=== PATIENT | male | born 1945 | race Caucasian/White ===

== ENCOUNTER 2016-08-02 18:35 | Emergency (ER) | payer MEDICARE, OTHER ==
[2016-08-02] MEDS ORDERED: Erythromycin 3.5 GM OPHTH. OP ONE (19:02)
[2016-08-02] MEDS ORDERED: TETRACAINE 0.5% STERI-UNIT SOL OP STA (19:02)
[2016-08-02] MEDS ORDERED: Eye-Stream Solution OP ONE (19:02)
[2016-08-02] MEDS ORDERED: Fluor-I-Strip/Ful-Flo OP ONE ×2 (19:02→19:09)
[2016-08-02 19:08] VITALS: BP 146/74; PULSE 61; O2SAT 97
[2016-08-02] MEDS ORDERED: TETRACAINE 0.5% STERI-UNIT SOL OP ONE (19:09)
[2016-08-02] MEDS ORDERED: Eye-Stream Solution ONE (19:10)
[2016-08-02] MEDS ORDERED: Erythromycin 1 GM ONE (19:10)
--- NOTE | 2016-08-02 19:23 | ERPHSYRPT ---
- History of Present Illness Time Seen by Provider: 08/02/16 19:13 Source: patient Exam Limitations: clinical condition Patient Subjective Stated Complaint: was mowing grass this afternoon and got something in left eye Triage Nursing Assessment: ambulated to room seven per self. skin w/d, color normal. left eye slightly red and clear watery drainage. Physician History: PATIENT STATES WHILE MOWING GRASS HAS FOREIGN BODY SENSATION TO HIS LEFT EYE. DENIES BLURRED VISION, PHOTOPHOBIA, OR TEARING. Timing/Duration: abrupt onset Severity: mild Prearrival Treatment: no prearrival treatment Modifying Factors: Improves With: nothing Associated Symptoms: other (LEFT EYE FOREIGN BODY SENSATION) Allergies/Adverse Reactions: Penicillins Allergy (Verified 08/02/16 18:51) Home Medications: Aspirin [[place] Aspirin] 81 mg PO DAILY 08/02/16 [History] Carvedilol 3.125 mg [Coreg 3.125 MG] 3.125 mg PO BID 08/02/16 [History] Clopidogrel Bisulfate 75 mg [PLAVIX 75 MG Tablet] 75 mg PO DAILY 08/02/16 [History] Furosemide 20 mg [Lasix 20 mg] 20 mg PO BID 08/02/16 [History] Lisinopril 20 mg [Zestril 20 MG] 20 mg PO DAILY 08/02/16 [History] Potassium Chloride 20 Meq [Klor-Con 20 MEQ] 20 meq PO BID 08/02/16 [History] Hx Tetanus, Diphtheria Vaccination/Date Given: No Hx Influenza Vaccination/Date Given: No Hx Pneumococcal Vaccination/Date Given: No - Review of Systems Constitutional: No Fever, No Chills Eyes: Foreign Body Sensation Ears, Nose, & Throat: No Symptoms Respiratory: No Symptoms, No Cough, No Dyspnea Cardiac: No Symptoms, No Chest Pain, No Edema, No Syncope Abdominal/Gastrointestinal: No Abdominal Pain, No Nausea, No Vomiting, No Diarrhea Genitourinary Symptoms: No Dysuria Musculoskeletal: No Back Pain, No Neck Pain Skin: No Rash Neurological: No Symptoms, No Dizziness, No Focal Weakness, No Sensory Changes Psychological: No Symptoms Endocrine: No Symptoms All Other Systems: Reviewed and Negative - Past Medical History Pertinent Past Medical History: Yes Cardiac History: High Cholesterol, Hypertension, Other Musculoskeletal History: Other - Past Surgical History Past Surgical History: Yes Cardiac: Valve Replacement Gastrointestinal: Appendectomy Musculoskeletal: Joint Replacement Other Surgical History: hip replacement - Social History Smoking Status: Never smoker Exposure to second hand smoke: No Drug Use: none Patient Lives Alone: No - Nursing Vital Signs Nursing Vital Signs: Initial Vital Signs Temperature 97.8 F Temperature Source Oral Pulse Rate 61 Respiratory Rate 16 Blood Pressure [Right Arm] 146/74 Pain Intensity 5 - Physical Exam General Appearance: no apparent distress, alert Eye Exam: left eye: other (ERYTHEMA LEFT CONJUNCTIVA), bilateral eye: PERRL, EOMI, abnormal EOM Ear Exam: bilateral ear: auricle normal, canal normal, TM normal Nasal Exam: normal inspection SpO2 Interpretation: normal SpO2: 97 Oxygen Delivery: Room Air Ordered Tests: Medication Summary Discontinued Medications Generic Name Dose Route Start Last Admin Trade Name Freq PRN Reason Stop Dose Admin Diphtheria/Tetanus/Acell Pertussis 0.5 ml 08/02/16 19:30 Adacel Vial IM 08/02/16 19:31 .ONCE ONE Erythromycin 3.5 gm 08/02/16 19:02 08/02/16 19:26 Erythromycin 3.5 Gm Ophth. OP 08/02/16 19:03 3.5 gm STAT ONE Administration Erythromycin Confirm 08/02/16 19:10 Erythromycin 1 Gm Administered 08/02/16 19:11 Dose 1 gm .ROUTE .STK-MED ONE Eye Irrigation Solution 15 ml 08/02/16 19:02 08/02/16 19:25 Eye-Stream Solution OP 08/02/16 19:03 15 ml STAT ONE Administration Eye Irrigation Solution Confirm 08/02/16 19:10 Eye-Stream Solution Administered 08/02/16 19:11 Dose 30 ml .ROUTE .STK-MED ONE Fluorescein Sodium 1 mg 08/02/16 19:02 08/02/16 19:26 Osndq-Q-Gskdi/Ful-Jai OP 08/02/16 19:03 1 mg STAT ONE Administration Fluorescein Sodium Confirm 08/02/16 19:09 Ktjyy-Q-Rgxwe/Ful-Jai Administered 08/02/16 19:10 Dose 1 mg OP .STK-MED ONE Tetracaine HCl 4 ml 08/02/16 19:02 08/02/16 19:26 Tetracaine 0.5% Steri-Unit [place] OP 08/02/16 19:03 4 ml STAT STA Administration Tetracaine HCl Confirm 08/02/16 19:09 Tetracaine 0.5% Steri-Unit [place]a Administered 08/02/16 19:10 Dose 4 ml OP .STK-MED ONE - Progress Progress Note: 08/02/16 19:27 VISUAL ACUITY 20/5O OU, TETRACAINE OPHTH 2GTTS OS, NO EVIDENCE OF FOREIGN BODY UPON EVERSION UPPER EYE LID, FLURO STAIN + FOR CORNEAL ABRASION 1MM AT 9-OCLOCK POSITION, EYE STREAM 30ML, APPLICATION ERYTHROMYCIN OPHTHALMIC OINTMENT OS Counseled pt/family regarding: diagnosis, need for follow-up - Departure Time of Disposition: 19:35 Departure Disposition: Home Clinical Impression: CORNEAL ABRASION LEFT EYE Condition: Stable Critical Care Time: No Referrals: CHRIS MORALES [Primary Care Provider] - Additional Instructions: APPLY 1/2" RIBBON ERYTHROMYCIN OPHTHALMIC OINTMENT INTO LEFT EYE EVERY 6 HOURS FOR 7 DAYS. TYLENOL EVERY 4 HOURS FOR PAIN NEEDED. CONSULT EYE PHYSICIAN DR CARDENAS FOR EVALUATION IN 1 WEEK. Prescriptions: Erythromycin Base 3.5 gm [Erythromycin 3.5 GM OPHTH.] 3.5 gm OP QID #1 tube
[2016-08-02] MEDS ORDERED: Adacel Vial IM ONE ×2 (19:30→22:45)
== END 2016-08-02 20:16 | disposition home or self-care (01) ==
LOC: ED 18:35
DX: S05.02XA Injury of conjunctiva and corneal abrasion without foreign body, left eye, initial encounter (principal); Y93.H9 Activity, other involving exterior property and land maintenance, building and construction
CPT/HCPCS: 90471; 90715; 99283; A9270-GY